=== PATIENT | male | born 1960 | race Caucasian/White ===

== ENCOUNTER 2016-11-15 11:40 | Outpatient (CLI) | payer OTHER | END 2016-11-15 11:41 | disposition critical access hospital (66) | LOC: EMS 11:40 | PROVIDERS: ATTEND Surgery | DX: R07.9 Chest pain, unspecified (principal) | CPT/HCPCS: A0425; A0427 ==

== ENCOUNTER 2016-11-15 12:00 | Observation (INO) | payer OTHER ==
[2016-11-15 12:52] LABS: BASOPHILS % (AUTO) 0.5 %; EOSINOPHILS % (AUTO) 0.5 %; HCT - HEMATOCRIT 41.1 % (42.0-52.0); HGB - HEMOGLOBIN 14.2 g/dL (14.0-18.0); LYMPHOCYTES # (AUTO) 0.8 10^3/uL (1.5-3.5); LYMPHOCYTES % (AUTO) 11.7 %; MEAN CORPUSCULAR HEMOGLOBIN 29.7 pg (27.0-31.0); MEAN CORPUSCULAR HGB CONC 34.5 g/dL (32.0-36.0); MEAN CORPUSCULAR VOLUME 86.3 fL (80.0-94.0); MEAN PLATELET VOLUME 7.5 fL (7.4-11.4); MONOCYTES # (AUTO) 0.5 10^3/uL (0.0-1.0); MONOCYTES % (AUTO) 7.7 %; NEUTROPHILS # (AUTO) 5.3 10^3/uL (1.5-6.6); NEUTROPHILS % (AUTO) 79.6 %; NUCLEATED RED BLOOD CELLS AUTO 0.1 /100WBC; RED BLOOD COUNT 4.77 10^6/uL (4.70-6.10); RED CELL DISTRIBUTION WIDTH 13.4 % (12.0-15.0); UNCORRECTED WHITE BLOOD COUNT 6.6 x10^3/uL; WHITE BLOOD COUNT 6.6 x10^3/uL (4.8-10.8)
--- NOTE | 2016-11-15 12:59 | XRAY Preliminary Report ---
Exam: XR Chest 1 View IMPRESSION: Normal single view chest. [facility] SITE ID: [id number]
[2016-11-15 13:00] LABS: INR 1.1 (0.8-1.2); PT - PROTHROMBIN TIME 12.5 secs (9.9-12.6)
--- NOTE | 2016-11-15 13:01 | XRAY Report ---
EXAM: CHEST RADIOGRAPHY EXAM DATE: 11/15/2016 12:42 PM. CLINICAL HISTORY: Chest pain. COMPARISON: None. TECHNIQUE: 1 view. FINDINGS: Lungs/Pleura: No focal opacities evident. No pleural effusion. No pneumothorax. Mediastinum: Within exam limitations, cardiomediastinal contour is normal. Other: None. IMPRESSION: Normal single view chest. [facility] Referring Provider Line: [phone] SITE ID: [id number]
[2016-11-15 13:21] LABS: TROPONIN I < 0.04 ng/mL (<0.49)
[2016-11-15] MEDS ORDERED: ASPIRIN CHEW 81 MG TABLET PO STA (13:29)
--- NOTE | 2016-11-15 13:33 | ED Physician Documentation ---
PD HPI CHEST PAIN - Stated complaint Stated Complaint: CP - Chief complaint Chief Complaint: Cardiac - History obtained from History obtained from: Patient, Family, EMS - History of Present Illness Timing - onset: Other (This is a 55-year-old gentleman with hypercholesterolemia , but no history of tobacco use or significant family history for coronary disease over the last 4 days has had intermittent exertional left-sided chest pressure that lasts minutes to hours at a time and is not associated with nausea , sweatiness, or weakness, or shortness of breath. It does get worse when he is exerting himself at work. He is never had this before. He has never had a stress test. No recent travel, pedal edema, or cough. He went to his doctor's office today for this and was referred here after a negative EKG for further evaluation and treatment.) Radiation: Other (No radiation including to the back.) Review of Systems Ten Systems: 10 systems reviewed and negative Constitutional: denies: Fever, Chills Ears: denies: Loss of hearing, Ear pain Nose: denies: Rhinorrhea / runny nose, Congestion Throat: denies: Dental pain / toothache, Sore throat Cardiac: denies: Palpitations, Pedal edema, Calf pain PD PAST MEDICAL HISTORY - Past Medical History Past Medical History: Yes Cardiovascular: High cholesterol - Past Surgical History Past Surgical History: No - Present Medications Home Medications: Ambulatory Orders Medication Instructions Recorded Confirmed Lovastatin 20 mg PO DAILY PM 11/15/16 11/15/16 - Allergies Allergies/Adverse Reactions: Allergies Allergy/AdvReac Type Severity Reaction Status Date / Time No Known Drug Allergies Allergy Verified 11/15/16 12:11 - Social History Does the pt smoke?: No Smoking Status: Never smoker Does the pt drink ETOH?: No Does the pt have substance abuse?: No - Immunizations Immunizations: TDAP >10years/unknown PD ED PE NORMAL - Vitals Vital signs reviewed: Yes - General General: Alert and oriented X 3, No acute distress - HEENT HEENT: PERRL, EOMI - Neck Neck: Supple, no meningeal sign, No bony TTP - Cardiac Cardiac: RRR, No murmur - Respiratory Respiratory: No respiratory distress, Clear bilaterally - Abdomen Abdomen: Normal bowel sounds, Soft, Non tender - Back Back: No CVA TTP, No spinal TTP - Derm Derm: Normal color, Warm and dry - Extremities Extremities: No deformity, No tenderness to palpate, No edema, No calf tenderness / cord - Neuro Neuro: Alert and oriented X 3, Normal speech - Psych Psych: Normal mood, Normal affect Results - Vitals Vitals: Vital Signs - 24 hr 11/15/16 11/15/16 11/15/16 12:08 12:30 12:43 Temperature 37.4 C Heart Rate 71 68 Respiratory 14 17 Rate Blood Pressure 127/69 124/76 Blood Pressure 127/69 [Left] Blood Pressure 124/75 [Right] O2 Saturation 99 96 11/15/16 13:39 Temperature Heart Rate 83 Respiratory 19 Rate Blood Pressure 120/75 Blood Pressure [Left] Blood Pressure [Right] O2 Saturation 96 Oxygen O2 Source Room air - EKG (time done) 1334 Rate: Rate (enter#) (62) Rhythm: NSR Somers: Normal Intervals: Normal ME QRS: Normal Ischemia: Normal ST segments Computer interpretation: Agree with computer - Labs Labs: Laboratory Tests 11/15/16 11/15/16 11/15/16 12:40 12:40 12:40 WBC 6.6 RBC 4.77 Hgb 14.2 Hct 41.1 L MCV 86.3 MCH 29.7 MCHC 34.5 RDW 13.4 Plt Count 230 MPV 7.5 Neut # 5.3 Lymph # 0.8 L [place]aca # 0.5 Eos # 0.0 Baso # 0.0 Absolute Nucleated RBC 0.00 Nucleated RBCs 0.1 PT 12.5 INR 1.1 Sodium 137 Potassium 3.8 Chloride 101 Carbon Dioxide 28 Anion Gap 8.0 BUN 15 Creatinine 0.8 Estimated GFR (MDRD) 100 Glucose 109 H Calcium 8.9 Magnesium Total Bilirubin 0.5 AST 17 ALT 15 Alkaline Phosphatase 62 Total Creatine Kinase 125 CK-MB (CK-2) Troponin I B-Natriuretic Peptide Total Protein 7.2 Albumin 4.0 Globulin 3.2 Albumin/Globulin Ratio 1.3 Triglycerides Cholesterol LDL Cholesterol, Calc VLDL Cholesterol HDL Cholesterol LDL/HDL Ratio Cholesterol/HDL Ratio Lipase 56 H 11/15/16 11/15/16 11/15/16 12:40 12:40 12:40 WBC RBC Hgb Hct MCV MCH MCHC RDW Plt Count MPV Neut # Lymph # Baca # Eos # Baso # Absolute Nucleated RBC Nucleated RBCs PT INR Sodium Potassium Chloride Carbon Dioxide Anion Gap BUN Creatinine Estimated GFR (MDRD) Glucose Calcium Magnesium 2.2 Total Bilirubin AST ALT Alkaline Phosphatase Total Creatine Kinase CK-MB (CK-2) 2.0 Troponin I < 0.04 B-Natriuretic Peptide 12 Total Protein Albumin Globulin Albumin/Globulin Ratio Triglycerides Cholesterol LDL Cholesterol, Calc VLDL Cholesterol HDL Cholesterol LDL/HDL Ratio Cholesterol/HDL Ratio Lipase 11/15/16 12:40 WBC RBC Hgb Hct MCV MCH MCHC RDW Plt Count MPV Neut # Lymph # Baca # Eos # Baso # Absolute Nucleated RBC Nucleated RBCs PT INR Sodium Potassium Chloride Carbon Dioxide Anion Gap BUN Creatinine Estimated GFR (MDRD) Glucose Calcium Magnesium Total Bilirubin AST ALT Alkaline Phosphatase Total Creatine Kinase CK-MB (CK-2) Troponin I B-Natriuretic Peptide Total Protein Albumin Globulin Albumin/Globulin Ratio Triglycerides 296 H Cholesterol 183 LDL Cholesterol, Calc 87 VLDL Cholesterol 59 HDL Cholesterol 37 L LDL/HDL Ratio 2.4 Cholesterol/HDL Ratio 4.9 Lipase - Rads (name of study) 1v chest Radiology: EMP read contemporaneously (normal) PD MEDICAL DECISION MAKING - ED course ED course: This is a 55-year-old gentleman with somewhat typical chest pain, new, exertional, but negative EKG here, pain-free, and undetectable troponin. He was administered aspirin. Spoke with Dr. Garay for observation at 1333. Departure - Departure Disposition: ED Place in Observation Clinical Impression: Chest pain Qualifiers: Chest pain type: precordial pain Qualified Code(s): R07.2 - Precordial pain Condition: Stable Discharge Date/Time: 11/15/16 15:19
[2016-11-15] MEDS ORDERED: ASPIRIN CHEW 81 MG TABLET ONE (13:40)
[2016-11-15 13:50] LABS: ALBUMIN/GLOBULIN RATIO 1.3 (1.0-2.2); BILIRUBIN,TOTAL 0.5 mg/dL (0.2-1.0); CALCIUM 8.9 mg/dL (8.5-10.3); CREATININE 0.8 mg/dL (0.6-1.2); POTASSIUM 3.8 mmol/L (3.5-5.0); TOTAL PROTEIN 7.2 g/dL (6.7-8.2)
[2016-11-15] MEDS ORDERED: MORPHINE 2 MG/ML SYRINGE IVP PRN (14:44)
[2016-11-15] MEDS ORDERED: ACETAMINOPHEN 325 MG TABLET PO PRN (14:44)
[2016-11-15] MEDS ORDERED: ONDANSETRON ODT 4 MG TABLET TL PRN (14:44)
[2016-11-15] MEDS ORDERED: SODIUM CHLORIDE FLUSH 0.9% 10 ML SYRINGE IVP PRN (14:44)
[2016-11-15] MEDS ORDERED: NITROGLYCERIN SL 0.4 MG TABLET SL PRN (14:46)
[2016-11-15 15:24] LABS: CHOL/HDL RATIO 4.9 (<5.0); CHOLESTEROL 183 mg/dL; HDL CHOLESTEROL 37 mg/dL; LDL/HDL RATIO 2.4 (<3.6); TRIGLYCERIDES 296 mg/dL; VLDL CHOLESTEROL 59 mg/dL
[2016-11-15] MEDS: SODIUM CHLORIDE 0.9% 1,000 ML IV SCH (17:05)
[2016-11-15] MEDS: PANTOPRAZOLE 40 MG VIAL IVP SCH (17:05)
--- NOTE | 2016-11-15 18:31 | HISTORY & PHYSICAL EXAMINATION ---
DATE OF ADMISSION: 11/15/2016 CHIEF COMPLAINT: Chest pain. HISTORY OF PRESENT ILLNESS: The patient is a very pleasant, 55-year-old male who presented t o the ER today with complaint of 4 days of chest pain with no history of coronary artery disease or t obacco usage. The patient states that his family does have a history of coronary artery disease and o hema the course of the last 4 days he has had intermittent exertional chest pain and pressure. 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 The patient de scribes the chest pain as more of a discomfort and an ache. He states that it radiates from the left chest side around to his back. He states that it is continuous and nothing makes it better. He has anderson d no nausea, vomiting, or diarrhea. He has had no shortness of breath. He states it does get worse wh en he is working more at work and lifting boxes and stocking. He has never had these type of symptoms before. He states he has never had echocardiogram or stress test. He does not have a insole presser at this time. He denies being around people who have been sick. No recent travel. He has had no cough. No numbness, tingling to extremities. He did go to his primary care office today and was sent to the ER after he was found to have a negative EKG. The patient was admitted to observation for further beverly luation and to rule out for a possible cardiac event. ALLERGIES: THE PATIENT HAS NO KNOWN DRUG ALLERGIES. HOME MEDICATIONS 1. Lovastatin 20 mg p.o. at night. 2. Occasional Tylenol with pain. PAST MEDICAL HISTORY: Does include hyperlipidemia. PAST SURGICAL HISTORY: None. PAST FAMILY HISTORY: Positive for coronary artery disease, hypertension, and high cholesterol on both mother and father's side. The patient states that he is and has children at home. PAST SOCIAL HISTORY: The patient has never smoked. He does not use drugs. Does not drink alcohol. REVIEW OF SYSTEMS: Ten systems have been reviewed and is negative with the exception as discussed in the HPI prior, and he is negative for congestion and sore throat, palpitations, calf pain, pedal carolyne a, hearing loss, diarrhea. He is positive for upper left-sided nonradiating chest pain with palpation and movement. PHYSICAL EXAMINATION CONSTITUTIONAL: The patient is alert, oriented, very pleasant gentleman in no acute distress . EYES: Pupils are equal, round, and reactive to light and accommodation. Conjunctivae and sclerae claire cteric, not injected. ENT: Nares are patent. No nasal discharge. Oropharynx has no masses, exudates, or lesions. Mucous mem branes are moist. NECK: Supple. No thyromegaly. Trachea is midline. RESPIRATORY: Breath sounds are clear and equal bilaterally to auscultation and percussion. There are no retractions, nasal flaring, or increased work of breathing. CARDIOVASCULAR: S1, S2 with a split S2 noted. The patient has normal PMI. No JVD. Sinus rate and rhyt hm. Pain with palpation and movement of left upper arm. GASTROINTESTINAL: Abdomen is soft, nontender. Bowel sounds are present. No guarding or rebound. NEUROLOGICAL: The patient is alert. Cranial nerves 2 through 7 are grossly intact. Sensory is intact. MUSCULOSKELETAL/EXTREMITIES: No cyanosis. Pulses are palpable. The patient has full range of motion w ith upper and lower extremities. No pedal edema is noted. Motor is 5/5 bilaterally. PSYCHIATRIC: Appears appropriate. Normal affect, pleasant mood, and oriented x3. HEMATOLOGIC: No active bleeding. The patient is hemodynamically stable. LYMPHATICS: No cervical, axillary, supraclavicular lymphadenopathy is noted. GENITOURINARY: No masses are palpated. No bladder distention. There is no CVA tenderness on right or left side. SKIN: Warm, dry, intact. Normal turgor. No evidence of rashes, lesions, or cellulitis. LABORATORY AND DIAGNOSTIC DATA: I personally reviewed all laboratory and diagnostic data in the medic al records and the results are as follows. Abnormalities are hematocrit 41.1, glucose 109, triglyceri mary ann 296, HDL 37. Lipase 56. First troponin was negative at less than 0.04. Diagnostic EKG: Rhythm is normal sinus rhythm with normal access, normal ME interval and normal QRS. No ischemia noted. IMPRESSION AND PLAN 1. Acute left-sided chest pain with radiation to upper left side of the back, possible cardiac etiolo gy. PLAN: Admit patient to observation, will rule out with cardiac markers trended, EKG repeated, on tele metry monitoring, cardiac diet. We will get a lipid profile. At this time, his triglycerides are elev ated at 296. However, this was a lipid that was drawn when patient had eaten. IV fluids, normal salin e for gentle hydration 100 mL an hour. We will continue the patient on chest pain protocol with nitro glycerin, aspirin, morphine, and supplemental oxygen 2 liters nasal cannula as needed to keep oxygen saturation greater than 92%. 2. Elevated triglyceride level with history of hyperlipidemia. PLAN: Will repeat lipid profile in the morning since patient will be seen at that time. However, he d oes have a history of hyperlipidemia. He is taking lovastatin, which will continue. We will also make sure he is getting aspirin daily. The patient has also been given [place] 3 and niacin as well. He is also placed on a low fat diet. 3. Hyperlipidemia, acute without diagnosis of diabetes mellitus. PLAN: We will get a glucose level in the morning with daily lab work, hemoglobin A1c was requested. T he patient does have background and also does have a distant relative, he could not remember who, who does have diabetes. 4. Deep venous thrombosis prophylaxis with Lovenox and foot pumps. STATUS: The patient is a FULL CODE status. RISK ASSESSMENT/DISPOSITION: The patient is high risk for worsening comorbidities. He will require IV medication with high risk for toxicity and additional diagnostics have been requested. Code status w as addressed at bedside. Time spent on assessment for admission and planning, education was 50 minutes. JOB #: [id number] EXT JOB #:[id number]
[2016-11-15] MEDS: OMEGA-3 ACID ETHYL ESTERS 1 GM CAPSULE PO SCH (20:36)
[2016-11-15] MEDS: SODIUM CHLORIDE FLUSH 0.9% 10 ML SYRINGE IVP SCH (20:40)
[2016-11-15] MEDS ORDERED: NIACIN ER 500 MG TABLET PO SCH (21:00)
[2016-11-16] MEDS: SODIUM CHLORIDE 0.9% 1,000 ML IV SCH ×2 (00:43→12:21)
[2016-11-16 01:56] LABS: BASOPHILS % (AUTO) 0.6 %; EOSINOPHILS # (AUTO) 0.1 10^3/uL (0.0-0.7); EOSINOPHILS % (AUTO) 1.9 %; HCT - HEMATOCRIT 39.1 % (42.0-52.0); HGB - HEMOGLOBIN 13.6 g/dL (14.0-18.0); LYMPHOCYTES # (AUTO) 1.2 10^3/uL (1.5-3.5); LYMPHOCYTES % (AUTO) 19.7 %; MEAN CORPUSCULAR HEMOGLOBIN 29.9 pg (27.0-31.0); MEAN CORPUSCULAR HGB CONC 34.8 g/dL (32.0-36.0); MEAN CORPUSCULAR VOLUME 85.9 fL (80.0-94.0); MEAN PLATELET VOLUME 7.7 fL (7.4-11.4); MONOCYTES # (AUTO) 0.7 10^3/uL (0.0-1.0); MONOCYTES % (AUTO) 11.8 %; RED BLOOD COUNT 4.55 10^6/uL (4.70-6.10); RED CELL DISTRIBUTION WIDTH 13.3 % (12.0-15.0); UNCORRECTED WHITE BLOOD COUNT 6.1 x10^3/uL; WHITE BLOOD COUNT 6.1 x10^3/uL (4.8-10.8)
[2016-11-16 02:08] LABS: ALBUMIN/GLOBULIN RATIO 1.2 (1.0-2.2); BILIRUBIN,TOTAL 1.7 mg/dL (0.2-1.0); CALCIUM 8.5 mg/dL (8.5-10.3); CREATININE 0.9 mg/dL (0.6-1.2); POTASSIUM 3.6 mmol/L (3.5-5.0); TOTAL PROTEIN 6.7 g/dL (6.7-8.2)
[2016-11-16] MEDS: SODIUM CHLORIDE FLUSH 0.9% 10 ML SYRINGE IVP SCH (05:56)
[2016-11-16] MEDS: PANTOPRAZOLE 40 MG VIAL IVP SCH (05:56)
[2016-11-16] MEDS ORDERED: ENOXAPARIN 40 MG/0.4 ML SYRINGE SUBQ SCH (09:00)
[2016-11-16] MEDS ORDERED: POLYETHYLENE GLYCOL 3350 17 GM PACKET PO SCH (09:00)
[2016-11-16] MEDS ORDERED: ASPIRIN EC 81 MG TABLET PO SCH (09:00)
[2016-11-16] MEDS: OMEGA-3 ACID ETHYL ESTERS 1 GM CAPSULE PO SCH (09:03)
--- NOTE | 2016-11-16 09:04 | Discharge Plan ---
Discharge Plan Disposition: Home, Self Care Condition: Good Prescriptions: Saccharomyces Boulardii [Florastor] 250 mg PO BID #60 capsule [place]-3 Acid Ethyl Esters [Lovaza] 1 gm PO BID #60 capsule Niacin [Niaspan] 500 mg PO QPM #30 tablet Diet: Cardiac Activity Restrictions: No Restrictions Shower Restrictions: No Driving Restrictions: No Weight Bearing: Full Weight Instruction Topics: Angina, Heart Attack Warning Signs, Gallstones Tx, Gallstones Additional Instructions or Follow Up instructions: PLEASE CONTINUE TO TAKE YOUR HOME MEDICATIONS PRESCRIBED. YOU HAVE BEEN GIVEN PRESCRIPTIONS FOR YOUR HIGH CHOLESTEROL. YOU NEED TO EAT A LOWER FAT DIET HEART HEALTHY DIET AND NO SODA. DRINK MOSTLY WATER DURING THE DAY PLEASE EXERCISE DAILY AND AT LEAST 20 MINUTES THREE TIMES A WEEK OF RIGOROUS EXERCISE ARE BEST. WALKING IS A GOOD WAY TO GET EXERCISE PLEASE SEE YOUR PRIMARY CARE PROVIDER WITHIN 1 WEEK OF DISCHARGE FOR ADDITIONAL QUESTIONS AND FOLLOW UP FOR BEING IN THE HOSPITAL. PLEASE RETURN TO THE ER IF YOUR SYMPTOMS COME BACK. PLEASE CALL 911 IF YOU HAVE CHEST PAIN OR SHORTNESS OF BREATH THAT WILL NOT GO AWAY. PLEASE CONTINUE TO TAKE AN ASPIRIN DAILY. No Smoking: If you smoke, Please STOP! Call for help.
--- NOTE | 2016-11-16 09:10 | DISCHARGE SUMMARY ---
"Discharge Summary Admit Date: 11/15/16 Discharge Date: 11/16/16 Discharging Provider: NAVARRO GARDINER Code Status: Attempt Resuscitation Condition at Discharge: Good Discharge Disposition: 01 Home, Self Care Discharge Facility Name: HOME - DIAGNOSES Admission Diagnoses: 1. ACUTE LEFT SIDED CHEST PAIN WITH POSSIBLE CARDIAC ETIOLOGY 2. ELEVATED LIPASE, UNSPECIFIED 3. HYPER LIPIDEMIA, CHRONIC 4. ELEVATED BLOOD GLUCOSE,UNSPECIFIED Discharge Diagnoses with Status of Each Condition: 1. ACUTE UPPER LEFT CHEST WALL PAIN WITH CHOLELITHIASIS 2. HYPERLIPIDEMIA WITH HYPERTRIGLYCERIDES 3. ELEVATED BILIRUBIN, ACUTE 4. ELEVATED LIPASE, ACUTE WITH CHOLELITHIASIS - HPI History of Present Illness: History of Present Illness Timing - onset: Other (This is a 55-year-old gentleman with hypercholesterolemia , but no history of tobacco use or significant family history for coronary disease over the last 4 days has had intermittent exertional left-sided chest pressure that lasts minutes to hours at a time and is not associated with nausea , sweatiness, or weakness, or shortness of breath. It does get worse when he is exerting himself at work. He is never had this before. He has never had a stress test. No recent travel, pedal edema, or cough. He went to his doctor's office today for this and was referred here after a negative EKG for further evaluation and treatment.) - CONSULTS | PROCEDURES Consultations: NONE Procedures: ULTRASOUND OF THE ABDOMEN: IMPRESSION WITH GALLSTONES AND CHOLELITHIASIS ECHOCARDIOGRAM: GRADE 1 DIASTOLIC DYSFUNCTION WITH EF 60-65% EKG: NO ISCHEMIA, NSR - HOSPITAL COURSE Hospital Course: HOSPITAL COURSE: 1. Acute left-sided chest pain with radiation to upper left side of the back, RULE OUT CARDIAC PLAN: Admit patient to observation, ruled out with cardiac markers trended and negative, EKG repeated sinus rate, on telemetry monitoring, cardiac diet. hyperlipidemia with elevated triglycerides on the lipid profile. his triglycerides are elevated at 296. IV fluids, normal saline for gentle hydration 100 mL an hour. continued the patient on chest pain protocol with nitroglycerin, aspirin, morphine, and supplemental oxygen 2 liters nasal cannula as needed to keep oxygen saturation greater than 92%. Echocardiogram and ultrasound of the abdomen completed. results reviewed above 2. Elevated triglyceride level with history of hyperlipidemia. ordered lipid profile. continued on home dosage of lovastatin. continued on aspirin daily. Also gave [place] 3 and niacin as well. He was placed on a low fat diet. 3. Hyperglycemia, acute without diagnosis of diabetes mellitus. Ordered glucose level. Normal A1C. The patient did have background with a distant relative, he could not remember who, who does have diabetes. 4. Deep venous thrombosis prophylaxis with Lovenox and foot pumps. Patient ruled out for cardiac etiology and found to have cholelithiasis and elevated cholesterol trriglycerides - ALLERGIES Allergies/Adverse Reactions: Allergies Allergy/AdvReac Type Severity Reaction Status Date / Time No Known Drug Allergies Allergy Verified 11/15/16 12:11 - MEDICATIONS Home Medications: Ambulatory Orders Medication Instructions Recorded Confirmed Lovastatin 20 mg PO DAILY PM 11/15/16 11/15/16 Niacin [Niaspan] 500 mg PO QPM #30 tablet 11/16/16 [place]-3 Acid Ethyl Esters [Lovaza] 1 gm PO BID #60 capsule 11/16/16 Saccharomyces Boulardii [Florastor] 250 mg PO BID #60 capsule 11/16/16 - PHYSICAL EXAM AT DISCHARGE General Appearance: positive: No acute distress, Alert Eyes Bilateral: positive: Normal inspection, PERRL, EOMI ENT: positive: ENT inspection nml, Pharynx nml, No signs of dehydration Neck: positive: Nml inspection, Thyroid nml, No JVD, Trachea midline Respiratory: positive: Chest non-tender, No respiratory distress, Breath sounds nml Cardiovascular: positive: Regular rate & rhythm, No murmur, No gallop Peripheral Pulses: positive: 2+ Abdomen: positive: Non-tender, No organomegaly, Nml bowel sounds, No distention. negative: Guarding, Rebound Rectal: positive: Non-tender Back: positive: Nml inspection. negative: CVA tenderness (R), CVA tenderness (L ) Skin: positive: Color nml, No rash, Warm, Dry Extremities: positive: Non-tender, Full ROM, Nml appearance Neurologic/Psychiatric: positive: Oriented x3, CN's nml (2-12), Motor nml, Sensation nml, Mood/affect nml - LABS Result Diagrams: 11/16/16 01:48 11/16/16 01:48 Other Lab Results: Abnormal Lab Results 11/15/16 11/15/16 11/15/16 12:40 12:40 12:40 RBC Hgb Hct 41.1 % L % (42.0-52.0) Lymph # 0.8 10^3/uL L 10^3/uL (1.5-3.5) Estimated GFR (MDRD) Glucose 109 mg/dL H mg/dL (70-100) Total Bilirubin Triglycerides 296 mg/dL H mg/dL ( - 149) HDL Cholesterol 37 mg/dL L mg/dL (60 - ) Lipase 56 U/L H U/L (22-51) 11/16/16 11/16/16 01:48 01:48 RBC 4.55 10^6/uL L 10^6/uL (4.70-6.10) Hgb 13.6 g/dL L g/dL (14.0-18.0) Hct 39.1 % L % (42.0-52.0) Lymph # 1.2 10^3/uL L 10^3/uL (1.5-3.5) Estimated GFR (MDRD) 88 L (>89) Glucose 113 mg/dL H mg/dL (70-100) Total Bilirubin 1.7 mg/dL H mg/dL (0.2-1.0) Triglycerides HDL Cholesterol Lipase 53 U/L H U/L (22-51) - DIAGNOSTIC IMAGING Diagnostic Imaging Results: Final report reviewed - FOLLOW UP Follow Up: PATIENT WAS INSTRUCTED T SEE HIS PRIMARY CARE PROVIDER WITHIN THE FIRST WEEK OF DISCHARGE. HE WAS GIVEN PRESCRIPTIONS FOR NIACIN AND OMEGA THREE. HE ALREADY TAKES A STATIN. HE DID RULE OUT FOR CARDIAC ETIOLOGY OF HIS PAIN. HE WAS INSTRUCTED TO EAT A LOW FAT DIET AND IF THE PAIN RETURNS TO COME BACK TO THE ER. HE WILL NEED TO SEE A GI SPECIALIST FOR GALLBLADDER PAIN WITH REFERRAL FROM PRIMARY CARE PROVIDER HE VERBALLY UNDERSTOOD INSTRUCTIONS GIVEN. AT BEDSIDE WELL FOR INSTRUCTIONS. HE WAS INSTRUCTED TO CALL 911 IF HE HAD CHEST PAIN OR SHORTNESS OF BREATH THAT DID NOT RESOLVE - TIME SPENT Time Spent in Discharge (Minutes): 46 (DISCHARGE ASSESSMENT AND PLANNING)"
--- NOTE | 2016-11-16 10:01 | Ultrasound Preliminary Report ---
Exam: US Abdomen Limited IMPRESSION: 1. Cholelithiasis. No definite biliary duct dilation or gallbladder wall thickening area no sonograph ic Koch's sign. Clinical correlation is recommended. 2. Pancreas was not well visualized due to overlying bowel gas. 3. Unremarkable appearance of the liver and right kidney. [facility] SITE ID: [id number]
--- NOTE | 2016-11-16 10:03 | Ultrasound Report ---
EXAM: ABDOMEN ULTRASOUND LIMITED, RUQ EXAM DATE: 11/16/2016 08:29 AM. CLINICAL HISTORY: Possible cholelithiasis or pancreas involvement. Patient has pain in the upper abdo men and both flanks. Elevated bilirubin and lipase. COMPARISON: None. TECHNIQUE: Real-time scanning was performed with static images obtained. FINDINGS: Liver: Normal in size and echotexture. 15.8 cm. Main portal vein flow: Hepatopetal. Gallbladder: Multiple large shadowing gallstones are seen in the gallbladder. No definite gallbladder wall thickening or sonographic Koch sign noted. No pericholecystic fluid is seen. Biliary System: CBD measures 5 mm. No intrahepatic or extrahepatic ductal dilatation. Other: Right kidney measures 10.8 cm in length and has no evidence of hydronephrosis or other focal a bnormality. The pancreas is not well visualized due to overlying bowel gas. No definite pancreatic ab normality is seen in the visualized portions. IMPRESSION: 1. Cholelithiasis. No definite biliary duct dilation or gallbladder wall thickening area no sonograph ic Koch's sign. Clinical correlation is recommended. 2. Pancreas was not well visualized due to overlying bowel gas. 3. Unremarkable appearance of the liver and right kidney. [facility] Referring Provider Line: [phone] SITE ID: [id number]
[2016-11-16 10:06] VITALS: BP 125/77
== END 2016-11-16 12:26 | disposition home or self-care (01) ==
LOC: ED 12:00 → OBS 13:45
PROVIDERS: ADMIT Nurse Practitioner; ATTEND Nurse Practitioner
DX: K80.20 Calculus of gallbladder without cholecystitis without obstruction (principal); E78.2 Mixed hyperlipidemia; R73.9 Hyperglycemia, unspecified; Z83.3 Family history of diabetes mellitus; Z82.49 Family history of ischemic heart disease and other diseases of the circulatory system
CPT/HCPCS: 36415; 71010; 76705; 80053; 80061; 80306; 82150; 82550; 82553; 83690; 83735; 83880; 84484; 85025; 85610; 93005; 93306; 96372; 96374; 96376; 99218; 99284; 99285; A9270; J1650

== ENCOUNTER 2022-06-01 09:07 | Outpatient (CLI) | payer OTHER ==
[2022-06-01 19:18] LABS: BASOPHILS % (AUTO) 0.7 %; EOSINOPHILS # (AUTO) 0.1 10^3/uL (0.0-0.7); EOSINOPHILS % (AUTO) 1.2 %; HCT - HEMATOCRIT 47.3 % (42.0-52.0); HGB - HEMOGLOBIN 15.3 g/dL (14.0-18.0); LYMPHOCYTES # (AUTO) 1.2 10^3/uL (1.5-3.5); LYMPHOCYTES % (AUTO) 21.2 %; MEAN CORPUSCULAR HEMOGLOBIN 30.1 pg (27.0-31.0); MEAN CORPUSCULAR HGB CONC 32.3 g/dL (32.0-36.0); MEAN CORPUSCULAR VOLUME 93.1 fL (80.0-94.0); MEAN PLATELET VOLUME 10.6 fL (7.4-11.4); MONOCYTES # (AUTO) 0.5 10^3/uL (0.0-1.0); MONOCYTES % (AUTO) 7.7 %; NEUTROPHILS % (AUTO) 68.9 %; PLT - PLATELET COUNT 319 10^3/uL (130-450); RED BLOOD COUNT 5.08 10^6/uL (4.70-6.10); RED CELL DISTRIBUTION WIDTH 12.4 % (12.0-15.0); WHITE BLOOD COUNT 5.9 x10^3/uL (4.8-10.8)
[2022-06-01 19:25] LABS: FECAL OCCULT BLOOD (FIT) NEGATIVE (NEGATIVE)
[2022-06-01 19:42] LABS: ALBUMIN 4.1 g/dL (3.2-5.5); ALBUMIN/GLOBULIN RATIO 1.1 (1.0-2.2); ALKALINE PHOSPHATASE 71 IU/L (42-121); ALT ALANINE AMINOTRANSFERASE 17 IU/L (10-60); AST ASPARTATE AMINOTRANSFERASE 19 IU/L (10-42); BILIRUBIN,TOTAL 0.5 mg/dL (0.2-1.0); BUN - BLOOD UREA NITROGEN 13 mg/dL (6-20); CALCIUM 8.9 mg/dL (8.5-10.3); CARBON DIOXIDE - CO2 29 mmol/L (21-32); CHLORIDE 102 mmol/L (101-111); CHOL/HDL RATIO 6.4 (<5.0); CHOLESTEROL 275 mg/dL; CREATININE 0.8 mg/dL (0.6-1.2); GFR - MDRD 98 (>89); GLUCOSE 103 mg/dL (70-100); HDL CHOLESTEROL 43 mg/dL; LDL CHOLESTEROL,CALCULATED 184 mg/dL; LDL/HDL RATIO 4.3 (<3.6); POTASSIUM 3.9 mmol/L (3.5-5.0); SODIUM 137 mmol/L (135-145); TOTAL PROTEIN 7.7 g/dL (6.7-8.2); TRIGLYCERIDES 238 mg/dL; VLDL CHOLESTEROL 48 mg/dL
[2022-06-01 19:51] LABS: THYROID STIMULATING HORMONE 1.88 uIU/mL (0.34-5.60)
== END 2022-06-01 09:08 | disposition home or self-care (01) ==
LOC: LAB.N 09:07
PROVIDERS: ATTEND Internal Medicine
DX: E78.5 Hyperlipidemia, unspecified (principal); Z12.11 Encounter for screening for malignant neoplasm of colon; Z12.5 Encounter for screening for malignant neoplasm of prostate; Z13.29 Encounter for screening for other suspected endocrine disorder; Z13.0 Encounter for screening for diseases of the blood and blood-forming organs and certain disorders involving the immune mechanism
CPT/HCPCS: 36415; 80053; 80061; 82274; 83721; 84153; 84443; 85025

== ENCOUNTER 2022-12-24 07:52 | Outpatient (CLI) | payer OTHER ==
[2022-12-24 12:19] LABS: CHOL/HDL RATIO 6.5 (<5.0); CHOLESTEROL 261 mg/dL; HDL CHOLESTEROL 40 mg/dL; LDL CHOLESTEROL,CALCULATED 173 mg/dL; LDL/HDL RATIO 4.3 (<3.6); TRIGLYCERIDES 242 mg/dL (48-352); VLDL CHOLESTEROL 48 mg/dL
== END 2022-12-24 07:53 | disposition home or self-care (01) ==
LOC: LAB.N 07:52
PROVIDERS: ATTEND Internal Medicine
DX: E78.5 Hyperlipidemia, unspecified (principal)
CPT/HCPCS: 36415; 80061; 83721

== ENCOUNTER 2023-04-04 07:23 | Outpatient (CLI) | payer OTHER ==
[2023-04-04 12:38] LABS: CHOLESTEROL 143 mg/dL; HDL CHOLESTEROL 47 mg/dL; LDL CHOLESTEROL,CALCULATED 73 mg/dL; LDL/HDL RATIO 1.6 (<3.6); TRIGLYCERIDES 116 mg/dL (48-352); VLDL CHOLESTEROL 23 mg/dL
[2023-04-04 12:43] LABS: ALBUMIN 4.1 g/dL (3.2-5.5); ALBUMIN/GLOBULIN RATIO 1.3 (1.0-2.2); ALKALINE PHOSPHATASE 62 IU/L (42-121); ALT ALANINE AMINOTRANSFERASE 22 IU/L (10-60); AST ASPARTATE AMINOTRANSFERASE 23 IU/L (10-42); BILIRUBIN,TOTAL 0.6 mg/dL (0.2-1.0); BUN - BLOOD UREA NITROGEN 14 mg/dL (6-20); CALCIUM 9.3 mg/dL (8.5-10.3); CARBON DIOXIDE - CO2 25 mmol/L (21-32); CHLORIDE 106 mmol/L (101-111); CREATININE 0.7 mg/dL (0.6-1.3); GFR - MDRD 114 (>89); GLUCOSE 109 mg/dL (74-104); POTASSIUM 4.1 mmol/L (3.5-4.5); SODIUM 137 mmol/L (135-145); TOTAL PROTEIN 7.2 g/dL (6.4-8.9)
== END 2023-04-04 07:24 | disposition home or self-care (01) ==
LOC: LAB.N 07:23
PROVIDERS: ATTEND Internal Medicine
DX: E78.5 Hyperlipidemia, unspecified (principal); Z12.5 Encounter for screening for malignant neoplasm of prostate
CPT/HCPCS: 36415; 80053; 80061; 83721; 84153

== ENCOUNTER 2023-10-10 07:17 | Outpatient (CLI) | payer OTHER ==
[2023-10-10 18:55] LABS: ALBUMIN/GLOBULIN RATIO 1.4 (1.0-2.2); ALKALINE PHOSPHATASE 66 IU/L (42-121); ALT ALANINE AMINOTRANSFERASE 25 IU/L (10-60); AST ASPARTATE AMINOTRANSFERASE 21 IU/L (10-42); BILIRUBIN,TOTAL 0.6 mg/dL (0.2-1.0); BUN - BLOOD UREA NITROGEN 12 mg/dL (6-20); CALCIUM 8.9 mg/dL (8.5-10.3); CARBON DIOXIDE - CO2 30 mmol/L (21-32); CHLORIDE 101 mmol/L (101-111); CHOL/HDL RATIO 3.3 (<5.0); CHOLESTEROL 149 mg/dL; CREATININE 0.9 mg/dL (0.6-1.3); GFR - MDRD 86 (>89); GLUCOSE 97 mg/dL (74-104); HDL CHOLESTEROL 45 mg/dL; LDL CHOLESTEROL,CALCULATED 74 mg/dL; LDL/HDL RATIO 1.6 (<3.6); POTASSIUM 4.1 mmol/L (3.5-4.5); SODIUM 136 mmol/L (135-145); TOTAL PROTEIN 6.9 g/dL (6.4-8.9); TRIGLYCERIDES 149 mg/dL; VLDL CHOLESTEROL 30 mg/dL
== END 2023-10-10 07:18 | disposition home or self-care (01) ==
LOC: LAB.N 07:17
PROVIDERS: ATTEND Internal Medicine
DX: E78.5 Hyperlipidemia, unspecified (principal); Z12.5 Encounter for screening for malignant neoplasm of prostate
CPT/HCPCS: 36415; 80053; 80061; 83721; 84153